=== PATIENT | male | born 1965 | race Caucasian/White ===

== ENCOUNTER → 2020-10-22 07:32 | Outpatient (CLI) | payer MEDICAID ==
[2016-05-30 23:10] VITALS: BMI 33.0
[~2020-10-22 07:32] MED LIST: HCTZ25 MG PO; IBUPROFEN600 MG PO; PRINIVIL20 MG PO; SORINE80 MG PO; TOPROL XL25 MG PO
--- NOTE | 2020-10-24 14:15 | EC ---
PATIENT:MELINDA HIRSCH DATE OF SERVICE: 10/22/20 SEX: M MEDICAL RECORD: [id number] DATE OF : 67 LOCATION:[facility] AGE OF PATIENT: 54 ADMISSION DATE: 10/22/20 REFERRING PHYSICIAN: INTERPRETING PHYSICIAN: LYN VÁZQUEZ MD ECHOCARDIOGRAM REPORT ECHO CHARGES 4 ECHO COMPLETE Date: 10/22/20 CLINICAL DIAGNOSIS: HEART MURMUR ECHOCARDIOGRAPHIC MEASUREMENTS (adult normal given) AC root (d.<3.7cm) 3.5 cm LV Septum d (<1.2 cm> 1.3 cm Valve Excursion 2.0 cm LV Septum (systole) 1.4 cm Left Atria (s.<4.0cm> 3.7 cm LVPW d(<1.2cm) 1.2 cm RV (d.<2.3cm) 4.6 cm LVPW (sytole) 1.9 cm LV diastole(<5.6CM) 5.6 cm MV E-F(>70mm/sec) cm LV systole 3.5 cm LVOT Diameter 2.1 cm MV exc.(>10mm) 1.6 cm Est.ejection fraction (50-75%) % DOPPLER: LVIT cm/sec A 98.0 cm/sec E 81.0 cm/sec LA cm/sec RVSP 35 mmHg LVOT 116 cm/sec AOP1/2T m/s Asc. Ao 145 cm/sec RVOT 63 cm/sec RA cm/sec PA 123 cm/sec AV Gradient Peak 8.39 mmHg AV Mean 4.08 mmHg AV Area 2.8 cm MV Gradient Peak 4.31 mmHg MV Mean 1.78 mmHg MV Area cm COMMENTS: Die Caster: 2 NOEL YE Ship Erector: 3 Dr. Salazar TAPE# PACS Pericardial Effusion N DATE OF SERVICE: Adequate 2D, color-flow imaging, spectral Doppler, and M-Mode Borderline LVH. LV internal dimension is normal. Wall motion was normal. EF is greater than or equal to 55%. Aortic valve sclerosed without evidence of stenosis by Doppler interrogation. Left atrium is normal at 3.9 cm. Mitral valve shows no prolapse. Trace MR. Right side is grossly normal. Trace TR. TRANSINT:[id number] Voice Confirmation ID: [id number] DOCUMENT ID: [id number] ECHOCARDIOGRAM REPORT [id number] MELINDA HIRSCH LYN VÁZQUEZ MD at 1415 CC: [id number] DICTATION DATE: 10/23/20 1045 CLINICAL QUALITY ASSURANCE ASSOCIATE: 10/23/20 1701 DEP CLI 10/22/20 [id number] [place] [address]
== END | disposition home or self-care (01) ==
LOC: D.HCCARDIO 07:32 → D.HCCECHO 09:00
PROVIDERS: ATTEND Internal Medicine Cardiovascular Disease
DX: R01.1 Cardiac murmur, unspecified (principal); I20.9 Angina pectoris, unspecified

== ENCOUNTER 2020-10-30 06:34 | Day surgery (SDC) | payer MEDICAID ==
[~2020-10-30] VITALS: Ht 177.8 cm; Wt 105.7 kg
--- NOTE | ~2020-10-30 | OP ---
PATIENT NAME: MELINDA HIRSCH MEDICAL RECORD: [id number] :67 LOCATION:[facility] ADMISSION DATE: SURGEON: LYN VÁZQUEZ MD DATE OF OPERATION: 10/30/2020 PROCEDURE: Left heart catheterization, selective coronary angiography, plus IFR wire to circ, plus intervention of the LAD, right femoral artery approach. CATHETERS: 5-Lithuanian sheath, 5/4 left and right Richie, 5/4 pig. The procedure was well tolerated. The patient returned to the chung. Sheath removed. ExoSeal device. FINDINGS: Left ventriculography in 30-degree ESTRADA view: Normal wall motion, normal systolic function. CORONARY ANATOMY: Left main: Left main is free of disease. LAD: Has proximal stenosis of 90%, diffuse stenosis distally of 80% to 90%. Circumflex: The circumflex has a questionable stenosis proximally; however, this is not flow restrictive via IFR wire. Right is rudimentary with diffuse disease. LAD appears culprit at this point. PLAN: Intervention momentarily. DESCRIPTION OF PROCEDURE: A 5-Lithuanian sheath was exchanged for a 6-Lithuanian sheath. A JL4 guiding catheter provided good guide catheter support followed by 300 cm indwelling IFR wire. Pre-deployment balloon was 3.0 x 15 mm Bullitt. Stents deployed where a 2.5 x 22, 3.0 x 12, and finally 3.0 x 15 all up to 14 atmospheres for 45 seconds. Final angiography showed excellent resolution, diffuse 80% stenosis distally and a more proximal discrete stenosis. No significant residual. KADEN flow was 3 throughout the procedure. Heparin and Integrilin were used during the case. Sheath closed with ExoSeal device. Given the young age, etc., risk factor modification will be at a premium. Further recommendations based on clinical course. TRANSINT:[id number] Voice Confirmation ID: [id number] DOCUMENT ID: [id number] LYN VÁZQUEZ MD CC: [id number] DICTATION DATE: 10/30/2038 ASSET CARD CLERK: 10/30/20 1317 [facility] 10/30/20 [facility] [address] [place] [address]
--- NOTE | ~2020-10-30 | HEMODYNAMI ---
PATIENT:MELINDA HIRSCH MEDICAL RECORD: [id number] : 67 LOCATION:[facility] ADMISSION DATE: 10/30/20 Generatedon:19:41 Patient name: MELINDA HIRSCH Patient #: [id number] SSN: D OB: 1965 Date of study: 10/30/2020 Page: Of Hemodynamic Procedure Report Patient Data Patient Demographics Procedure consent was obtained First Name: MELINDA Gender: Male Last Name: TORREY : 1965 Patient #: [id number] Age: 54 year(s) Race: Unknown Additional ID: [id number] Contact details [address]: [address] [place] [address] State: [place] City: [place] Zip code: [address] Past Medical History Allergies: No known allergies Admission Admission Data Admission Date: 10/30/2020 Admission Time: 6:34 Admit Source: Other Procedure Procedure Types Cath Procedure Diagnostic Procedure LHC LHC w/Coronaries FFR/IVUS FFR Initial Sedation Charges Moderate Sedation 40-54 minutes PCI Procedure Hemochron ACT Test Procedure Description Procedure Date Procedure Date: 10/30/2020 Procedure Start Time: 8:53 Procedure End Time: 9:39 Procedure Staff Name Function Jose Antonio Maxwell MD Performing Physician Raeann Perry RT Monitor Latrell Tavarez RN Nurse Louisa Connelly RT Scrub Procedure Data Cath Procedure Fluoroscopy Diagnostic fluoroscopy Total fluoroscopy Time: time: 12.2 min 12.2 min Diagnostic fluoroscopy Total fluoroscopy dose: dose: 2234 mGy 2234 mGy Contrast Material Contrast Material Type Amount (ml) Isovue 300 179 Entry Location Entry Primary Successful Side Size Upsize Upsize Entry Closure [place] ccessful Closure Location (Fr) 1 (Fr) 2 (Fr) Remarks Device Remarks Radial Right 6 Fr Mechanical artery Short Compression Femoral Right 5 Fr 6 Fr Exoseal artery Short Estimated blood loss: 10 ml Diagnostic catheters Device Type Used For End Catheter Placement DIAGNOSTIC [place] 110cm 5 Procedure Fr catheter (081471) MULTIPACK JL 4.0 5Fr Procedure catheter MULTIPACK 3DRC 5Fr Procedure catheter MULTIPACK Pigtail 5 Fr Ventriculography catheter Procedure Complications No complications Procedure Medications Medication Administration Route Dosage 0.9% NaCl I.V. 100 ml/hr Oxygen etCO2 Nasal cannula 2 l/min Heparin Flush Bag added to field 2 bags (1000units/500ml NS) Lidocaine 2% added to field 20 Radial Cocktail added to field 1 syringe (Verapamil 2mg/Nitro 400mcg/Heparin 1500units) Versed I.V. 2 mg Fentanyl I.V. 100 mcg Radial Cocktail I.A. 1 syringe (Verapamil 2mg/Nitro 400mcg/Heparin 1500units) Heparin Bolus I.V. 5000 units Integrilin (Bolus I.V. 9.5 ml 2mg/ml) Integrilin (Bolus wasted 0.5 ml 2mg/ml) Nitroglycerin IC/IA I.C. 150 mcg Plavix P.O. 600 mg Heparin Bolus I.V. 2000 units Hemodynamics Rest Heart Rate: 65 (bpm) Pressure Samples Time Site Value (mmHg) Purpose Heart Use Rate(bpm) 9:05 LV 133/32,34 Snapshot 61 Gradients Valve Time Site Site Mean SEP/DFP Peak To Heart Use 1 2 (mmHg) (sec/min) Peak Rate (mmHg) (bpm) Aortic 9:06 LV AO 62 Snapshots Pre Cath Intra NCS Post Cath Vital Signs Time Heart Resp SPO2 etCO2 NIBP Rhythm Pain Sedation Rate (ipm) (%) (mmHg) (mmHg) Status Level (bpm) 8:48:17 61 16 100 37.7 142/87(98) NSR 0 (11) 10(A) , No pain 8:52:33 61 13 100 30.8 122/70(88) NSR 0 (11) 10(A) , No pain 8:57:24 65 18 96 33.1 108/57(76) NSR 0 (11) 10(A) , No pain 9:01:32 60 11 98 39.1 107/56(91) NSR 0 (11) 10(A) , No pain 9:05:40 69 12 97 41.3 114/57(79) NSR 0 (11) 10(A) , No pain 9:09:50 60 10 99 36.8 114/62(78) NSR 0 (11) 10(A) , No pain 9:14:02 60 12 100 30.8 99/57(76) NSR 0 (11) 10(A) , No pain 9:18:05 62 13 100 40.6 113/63(81) NSR 0 (11) 10(A) , No pain 9:22:13 60 13 100 39.9 115/67(85) NSR 0 (11) 10(A) , No pain 9:26:23 61 13 100 39.9 119/62(87) NSR 0 (11) 10(A) , No pain 9:30:33 66 13 100 39.2 101/63(86) NSR 0 (11) 10(A) , No pain 9:34:33 66 15 100 39.1 106/72(99) NSR 0 (11) 10(A) , No pain 9:38:38 58 12 100 37.6 111/67(91) NSR 0 (11) 10(A) , No pain Medications Time Medication Route Dose Verified Delivered Reason Note s Effectiveness by by 8:47:34 0.9% NaCl I.V. 100 Latrell Latrell Per physician ml/hr Daysi Tavarez RN RN 8:47:43 Oxygen etCO2 2 l/min Latrell Latrell for low 02 sats Nasal Lorigan Lorpaulette cannula RN RN 8:47:54 Heparin Flush added 2 bags Latrell Latrell used for Bag to Lorigan Lorpaulette procedure (1000units/500ml [facility] RN RN NS) 8:48:04 Lidocaine 2% added 20ml Latrell Latrell for local to vial Lorigan Lorigan anesthetic RN RN 8:48:19 Radial Cocktail added 1 Latrell Latrell used for (Verapamil to syringe Lorigan Lorigan procedure 2mg/Nitro [facility] RN RN 400mcg/Heparin 1500units) 8:52:58 Versed I.V. 2 mg Latrell Latrell for sedation Daysi Tavarez RN RN 8:53:06 Fentanyl I.V. 100 mcg Latrell Latrell for sedation Daysi Tavarez RN RN 8:54:37 Radial Cocktail I.A. 1 Latrell Jose Antonio for (Verapamil syringe Lorigan Alissa vasodilation 2mg/Nitro RN MD 400mcg/Heparin 1500units) 9:11:24 Heparin Bolus I.V. 5000 Latrell Latrell for units Lorigan Lorpaulette anticoagulation RN RN 9:11:39 Integrilin I.V. 9.5 ml Latrell Latrell for (Bolus 2mg/ml) Daysi Tavarez antiplatelet RN RN therapy 9:11:53 Integrilin wasted 0.5 ml Latrell Latrell to sharp's (Bolus 2mg/ml) Daysi Tavarez RN RN 9:29:19 Nitroglycerin I.C. 150 mcg Latrell Jose Antonio for IC/IA Daysi Stephens RN, MD 9:37:26 Plavix P.O. 600 mg Latrell Latrell for Daysi Tavarez antiplatelet RN RN therapy 9:41:06 Heparin Bolus I.V. 2,000 Latrell Latrell for units Daysi Tavarez anticoagulation RN executive housekeeper Log Time Note 8:25:57 Informed consent obtained and on chart 8:29:27 Admit Source: Other 8:29:32 Procedure Status Elective Heart Cath (OP). 8:29:42 Louisa Connelly RT(R) sent for patient. Start room use. 8:29:44 Time tracking: Regular hours (M-F 7:00 - 5:00) 8:29:51 Plan of Care:Hemodynamics will remain stable., Cardiac rhythm will remain stable., Comfort level will be maintained., Respiratory function will remain adequate., Patient/ family verbilizes understanding of procedure., Procedure tolerated without complication., Recovers from procedure without complications.. 8:47:11 Patient received from Pre/Post Procedure Room to CCL 2 Alert and oriented. Tansferred to table in Supine position. 8:47:12 Warm blankets applied, and davon hugger turned on for patient comfort. 8:47:13 Correct patient and procedure confirmed by team. 8:47:13 ECG and BP/O2 sat monitors applied to patient. 8:47:15 Vital chart was started 8:47:16 Baseline sample Acquired. 8:47:21 Rhythm: sinus rhythm 8:47:23 Full Disclosure recording started 8:47:34 0.9% NaCl 100 ml/hr I.V. was administered by Latrell Tavarez RN; Per physician; Verbal order read back and verified. 8:47:40 H&P Date Dictated: 10/14/2020 Within 30 days and on chart., H&P Addendum completed by physician on day of procedure. (MUST COMPLETE FOR ALL OUTPATIENTS). 8:47:41 Pre-procedure instructions explained to patient. 8:47:43 Oxygen 2 l/min etCO2 Nasal cannula was administered by Latrell Tavarez RN; for low 02 sats; Verbal order read back and verified. 8:47:44 Family in patients room. 8:47:46 Patient NPO since Midnight. 8:47:54 Heparin Flush Bag (1000units/500ml NS) 2 bags added to field was administered by Latrell Tavarez RN; used for procedure; Verbal order read back and verified. 8:47:57 Patient allergic to No known allergies 8:48:00 Is the patient allergic to Iodine/contrast media? No. 8:48:04 Lidocaine 2% 20ml vial added to field was administered by Latrell Tavarez RN; for local anesthetic; Verbal order read back and verified. 8:48:18 Was the patient premedicated? Yes 8:48:19 Radial Cocktail (Verapamil 2mg/Nitro 400mcg/Heparin 1500units) 1 syringe added to field was administered by Latrell Tavarez RN; used for procedure; Verbal order read back and verified. 8:48:23 Is patient on blood thinner?No 8:48:25 Patient diabetic? No. 8:48:55 Previous problem with sedation/anesthesia? No ? 8:48:57 Snore? No 8:49:04 Patient pain scale 0/10 ?. 8:49:17 IV patent on arrival in left forearm with 0.9% NaCl at [facility]. 8:51:55 Stress Test: yes; abnormal hemodynamic 8:52:01 Right Radial & Right Groin area was prepped with chlora-prep and draped in sterile fashion 8:52:02 Alarms reviewed by R. N. 8:52:02 Sharps counted by scrub and verified by R.N. 8:52:06 Physician arrived 8:52:06 --------ALL STOP TIME OUT------ 8:52:07 Final Timeout: patient, procedure, and site verified with staff and physician. All members of the team are in agreement. 8:52:09 Right Radial & Right Groin site verified by team. 8:52:13 Fire Safety Assessment: A--An alcohol-based skin anteseptic being used preoperatively., C--Open oxygen or nitrous oxide is being used., D--An ESU, laser, or fiber-optic light is being used. 8:52:18 Physical assessment completed. ASA score P 3 - A patient with severe systemic disease as per Jose Antonio Maxwell MD. 8:52:21 1) 90+ Normal kidney functon but urine findings or structural abnormalities or genetic trait point to kidney disease. 8:52:24 Maximum allowable contrast dose (3.7 X eGFR X 0.75)250 ml. 8:52:28 Sedation plan: IV Moderate Sedation Medication:Versed, Fentanyl 8:52:58 Versed 2 mg I.V. was administered by Latrell Tavarez RN; for sedation; Verbal order read back and verified. 8:52:58 Use device set Radial Dx or PCI 8:53:01 Procedure started. 8:53:06 Fentanyl 100 mcg I.V. was administered by Latrell Tavarez RN; for sedation; Verbal order read back and verified. 8:53:16 Local anesthetic to right radial artery with Lidocaine 2% by Jose Antonio Maxwell MD.INITIAL ACCESS ONLY 8:53:26 A 6 Fr Short sheath was inserted into the Right Radial artery 8:53:28 ACIST Syringe (09256) opened to sterile field. 8:53:29 Medline Cath Pack ([id number]) opened to sterile field. 8:53:29 Bag Decanter (2002) opened to sterile field. 8:53:30 ACIST Hand Control (81291) opened to sterile field. 8:53:30 ACIST Manifold (34394) opened to sterile field. 8:53:34 MBrace Wrist Support ([id number]) opened to sterile field. 8:53:37 EMERALD Guide Wire (939-828) opened to sterile field. 8:53:38 SHEATH 6FR RAIN (4146929) opened to sterile field. 8:54:37 Radial Cocktail (Verapamil 2mg/Nitro 400mcg/Heparin 1500units) 1 syringe I.A. was administered by Jose Antonio Maxwell MD; for vasodilation; Verbal order read back and verified. 8:55:16 A DIAGNOSTIC [place] 110cm 5 Fr catheter (562057) was advanced over the wire and used for Procedure. 8:57:32 GLIDE WIRE ANGLE 260cm (ZD0422) opened to sterile field. 8:58:08 Jwire exchanged for Glidewire 9:00:21 unable to access coronarys through radial artery 9:00:29 Catheter removed. 9:00:54 SHEATH 5FR [place] (GYD224) opened to sterile field. 9:01:36 Local anesthetic to right femoral artery with Lidocaine 2% by Jose Antonio Maxwell MD.ADDITIONAL ACCESS 9:01:47 A 5 Fr sheath was inserted into the Right Femoral artery 9:01:54 DIAGNOSTIC Multipack 5Fr catheter set (BG7546) opened to sterile field. 9:02:09 A MULTIPACK JL 4.0 5Fr catheter was advanced over the wire and used for Procedure. 9:02:32 LCA angiography performed. 9:03:36 Catheter removed. 9:03:43 A MULTIPACK 3DRC 5Fr catheter was advanced over the wire and used for Procedure. 9:04:24 RCA angiography performed. 9:05:18 Catheter removed. 9:05:43 A MULTIPACK Pigtail 5 Fr catheter was advanced over the wire and used for Ventriculography. 9:06:09 LV gram done using ESTRADA 9:06:18 EF : 55 % 9:06:34 SHEATH 6FR [place] (VBE548) opened to sterile field. 9:06:50 Sheath upsized to a 6 Fr Short. 9:07:29 6 Fr JL4 guide catheter was inserted over the wire 9:07:53 GUIDE 6FR JL 4.0 catheter (LO4LY93) opened to sterile field. 9:08:12 Richey OmniWire (45462) opened to sterile field. 9:08:48 Zero performed for pressure channel P1 9:08:52 Zero performed for pressure channel P1 9:09:27 Pressure wire advanced. 9:11:24 Heparin Bolus 5000 units I.V. was administered by Latrell Tavarez RN; for anticoagulation; Verbal order read back and verified. 9:11:39 Integrilin (Bolus 2mg/ml) 9.5 ml I.V. was administered by Latrell Tavarez RN; for antiplatelet therapy; Verbal order read back and verified. 9:11:53 Integrilin (Bolus 2mg/ml) 0.5 ml wasted was administered by Latrell Tavarez RN; to sharp's; Verbal order read back and verified. 9:11:53 mCirc lesion measured at .94 with IFR 9:12:34 Wire redirected to LAD. 9:17:19 INFLATOR Merit BasixCompak (XB2066) opened to sterile field. 9:17:23 ZEPHYR REGULAR TR BAND (895661) opened to sterile field. 9:17:24 Tegaderm 4 x 4 (1626W) opened to sterile field. 9:17:58 Place stent Inflation Number: 1 A ARCELIA RX 3.0 x 12 stent ([id number]) was prepped and advanced across the Mid LAD 80. The stent was deployed at 14 PAMELLA for 0:18 (min:sec) . 9:18:55 Inflation number: 1 The stent balloon was then re-inflated across the Dist LAD 80 to 8 PAMELLA for 0:15 (min:sec) . 9:21:01 Stent catheter was removed intact over wire. 9:21:53 Place stent Inflation Number: 2 A ARCELIA RX 2.5 x 22 stent ([id number]) was prepped and advanced across the Dist LAD 80. The stent was deployed at 12 PAMELLA for 0:19 (min:sec) . 9:22:18 Inflation number: 3 The stent balloon was then re-inflated across the Dist LAD to 10 PAMELLA for 0:12 (min:sec) . 9:23:55 Inflation number: 4 The stent balloon was then re-inflated across the Dist LAD to 6 PAMELLA for 0:27 (min:sec) . 9:24:20 Stent catheter was removed intact over wire. 9:26:29 Place stent Inflation Number: 1 A ARCELIA RX 3.0 x 15 stent ([id number]) was prepped and advanced across the Prox LAD 80. The stent was deployed at 12 PAMELLA for 0:32 (min:sec) . 9:27:07 Inflation number: 2 The stent balloon was then re-inflated across the Prox LAD to 6 PAMELLA for 0:15 (min:sec) . 9:27:34 Inflation number: 3 The stent balloon was then re-inflated across the Prox LAD to 8 PAMELLA for 0:10 (min:sec) . 9:29:19 Nitroglycerin IC/IA 150 mcg I.C. was administered by Jose Antonio Maxwell MD; for vasodilation; Verbal order read back and verified. 9:31:10 Stent catheter was removed intact over wire. 9:31:16 Wire removed. 9:31:17 Guide catheter removed. 9:33:22 EXOSEAL 6Fr (EX600) opened to sterile field. 9:33:40 Sheath removed intact; hemostasis achieved with Exoseal to the Right Femoral artery. 9:33:53 Sheath removed intact; hemostasis achieved with Mechanical Compression to the Right Radial artery. 9:33:57 Procedure ended.(Physican Out) 9:34:35 Fluoroscopy time 12.20 minutes. 9:34:42 Fluoroscopy dose: 2234 mGy 9:34:42 Flurop Dose total: 2234 9:34:47 Dose Area Product [id number] mGy/cm. 9:35:01 Contrast amount:Isovue 300 179ml. 9:35:03 Maximum allowable dose exceeded? No. 9:35:04 Sharps counted by scrub and verified by R.N. 9:35:08 [place] band inflated with 10cc of air. 9:35:09 Insertion/operative site no bleeding no hematoma. 9:35:13 Post-op/insertion site Right Femoral artery dressed using a 4 x 4 and Tegaderm. 9:35:16 Post Procedure Pulses reassessed and unchanged 9:35:20 Post-procedure physical assessment completed. ASA score P 3 - A patient with severe systemic disease as per Jose Antonio Maxwell MD. 9:35:23 Post procedure rhythm: unchanged. 9:35:26 Estimated blood loss: 10 ml 9:35:28 Post procedure instruction explained to patient.Patient verbalizes understanding. 9:36:08 Procedure type changed to Cath procedure, Diagnostic procedure, [facility], [facility] w/Coronaries, FFR/IVUS, FFR Initial, Sedation Charges, Moderate Sedation 40-54 minutes, PCI procedure, Hemochron ACT Test 9:36:11 Procedure and supply charges have been captured, reviewed, submitted and are correct. 9:37:26 Plavix 600 mg P.O. was administered by Latrell Tavarez RN; for antiplatelet therapy; Verbal order read back and verified. 9:37:44 ACT drawn and resulted at 135 seconds. (normal therapeutic range 180-240 seconds). 9:39:40 Procedure Complication : No complications 9:39:42 Vital chart was stopped 9:39:46 [facility] Findings: MVD- PCI performed (see procedure note) 9:39:48 Operative report dictated upon procedure completion. 9:39:48 See physician's report for complete and final results. 9:39:51 Report given to Pre/Post Procedure Room. 9:39:54 Patient transfered to Pre/Post Procedure Room with Stretcher. 9:39:57 Procedure ended. 9:39:57 Full Disclosure recording stopped 9:40:05 End room use (Document Last) 9:40:34 End room use (Document Last) 9:41:06 Heparin Bolus 2,000 units I.V. was administered by Latrell Tavarez RN; for anticoagulation; Verbal order read back and verified. 9:41:08 End room use (Document Last) Intervention Summary Intervention Notes Time ActionType Lesion and Equipment Used Action# Pressure Duration Attributes 9:17:58 Place stent Mid LAD ARCELIA RX 3.0 x 1 14 00:18 12 stent ([id number]) 9:18:55 Reinflate Dist LAD ARCELIA RX 3.0 x 1 8 00:15 stent 12 stent balloon ([id number]) 9:21:53 Place stent Dist LAD ARCELIA RX 2.5 x 2 12 00:19 22 stent ([id number]) 9:22:18 Reinflate Dist LAD ARCELIA RX 2.5 x 3 10 00:12 stent 22 stent balloon ([id number]) 9:23:55 Reinflate Dist LAD ARCELIA RX 2.5 x 4 6 00:27 stent 22 stent balloon ([id number]) 9:26:29 Place stent Prox LAD ARCELIA RX 3.0 x 1 12 00:32 15 stent ([id number]) 9:27:07 Reinflate Prox LAD ARCELIA RX 3.0 x 2 6 00:16 stent 15 stent balloon ([id number]) 9:27:34 Reinflate Prox LAD ARCELIA RX 3.0 x 3 8 00:10 stent 15 stent balloon ([id number]) Device Usage Item Name Manufacture Quantity Catalog Hospital Part Current [facility] Lot# / Number Charge Number Stock Stock Serial# Code ACIST Syringe Acist 1 61929 315176 803955 051689 20 (15978) Medical Systems Inc Medline Cath Medline 1 [id number] 736755 54443 518458 5 Pack ([id number]) Bag Decanter Microtek 1 502893 06287 735535 5 () Medical Inc. ACIST Hand Acist 1 41063 743162 966459 966912 5 Control Medical (18312) Systems Inc ACIST Manifold Acist 1 76169 888871 486662 870775 5 (63669) Medical Systems Inc MBrace Wrist Advanced 1 140-0250-00 282501 00077 330465 5 Support Vascular ([id number]) Dynamics EMERALD Guide Cardinal 1 502-455 799589 132713 695901 5 Wire (502-455) Health SHEATH 6FR Cardinal 1 4510654 686856 2837528 708059 5 RAIN (2064305) Health DIAGNOSTIC Terumo 1 40-5013 090639 688872 532939 5 [place] 110cm 5 Fr catheter (705360) GLIDE WIRE Terumo 1 GI0663 907315 389746 083638 5 ANGLE 260cm (BE0017) SHEATH 5FR Terumo 1 OFK440 153567 642127 317210 5 [place] (YFV434) DIAGNOSTIC Cardinal 1 DD2631 950474 56383 520795 30 Multipack 5Fr Health catheter set (OH6062) MULTIPACK JL Cardinal 1 432928 5 4.0 5Fr Health catheter MULTIPACK 3DRC Cardinal 1 842075 5 5Fr catheter Health MULTIPACK Cardinal 1 073492 5 Pigtail 5 Fr Health catheter SHEATH 6FR Terumo 1 SQN746 651283 770529 803805 40 [place] (UMD032) GUIDE 6FR JL Medtronic 1 [id number] 727315 96584 684010 1 4.0 catheter (NL5BA22) Richey Richey 1 9570411 707320 16960 9975 5 OmniWire (88820) INFLATOR Merit Merit 1 CQ4485 106816 026089 606504 15 BasixComtxk Medical (ER0289) ZEPHYR REGULAR Cardinal 1 773629 639791 6299257 568516 5 Travee (515316) Tegaderm 4 x 4 3M 1 1626W 425753 532152 844281 5 (1626W) ARCELIA RX 3.0 x Medtronic 1 [id number] 176677 9777396 174668 5 [id number] 12 stent ([id number]) ARCELIA RX 2.5 x Medtronic 1 [id number] 868450 3404110 870336 5 [id number] 22 stent ([id number]) ARCELIA RX 3.0 x Medtronic 1 [id number] 120911 9081671 392484 5 [id number] 15 stent ([id number]) EXOSEAL 6Fr Cardinal 1 EX600 541537 253020 913263 10 (EX600) Health Signature Audit [place] Stage Time Signature Unsigned Intra-Procedure 10/30/2020 Raeann Perry 9:40:34 AM RT(R) Intra-Procedure 10/30/2020 Latrell 9:41:08 AM Daysi RN Intra-Procedure 10/30/2020 Jose Antonio Khan 9:41:45 AM Delio VARGAS Signatures Performing Physician : Signature : Jose Antonio Maxwell MD Date : Time : Monitor : Raeann Perry Signature : RT Date : Time : Nurse : Latrell Tavarez Signature : RN Date : Time : [address] [place] [address]
[2020-10-30] MEDS ORDERED: BAYER CHEWABLE81 MG PO (07:06)
[2020-10-30] MEDS ORDERED: LIPITOR20 MG PO (07:07)
[2020-10-30 07:38] VITALS: BP 136/80; Ht 177.8 cm; Wt 105.7 kg
[2020-10-30 07:38] LABS: BASOPHILS 0.6 % (0-2); EOSINOPHILS 2.5 % (0-7); HEMATOCRIT 41.5 % (42.0-54.0); HEMOGLOBIN 12.6 g/dL (13.5-17.5); IMMATURE GRANULOCYTES 0.1 % (0-5); LYMPHOCYTE ABS# 2.33 10x3/uL (1.32-3.57); LYMPHOCYTES 28.7 % (15-50); MCH 23.9 pg (26.0-34.0); MCHC 30.4 g/dL (31.0-37.0); MCV 78.7 fL (80.0-100.0); MONOCYTES 8.9 % (2-11); NEUTROPHIL ABS# 4.81 10x3/uL (1.78-5.38); NEUTROPHILS 59.2 % (40-80); RBC 5.27 10x6/uL (4.20-6.10); RDW 16.3 % (11.5-14.5); WBC 8.1 10x3/uL (4.8-10.8)
[2020-10-30 07:48] LABS: PLATELET COUNT 422 10x3/uL (130-400)
[2020-10-30 07:57] LABS: ALT (SGPT) 25 U/L (10-68); CALC OSMOLALITY 269 mosm/kg (275-300); CALCIUM 8.6 mg/dL (8.5-10.1); CARBON DIOXIDE 27.1 mmol/L (21.0-32.0); CHLORIDE - SERUM 100 mmol/L (98-107); CHOL - HDL RATIO 4.6 ratio (2.3-4.9); CHOLESTEROL, TOTAL 119 mg/dL (0-200); CREATININE - SERUM 0.8 mg/dL (0.6-1.3); GLUCOSE 102 mg/dL (74-106); HDL CHOLESTEROL 26 mg/dL (32-96); LDL CHOLESTEROL 80 mg/dL (0-100); LDL-HDL RATIO 3.1 ratio (1.5-3.5); POTASSIUM - SERUM 4.3 mmol/L (3.5-5.1); SODIUM 135 mmol/L (136-145); TRIGLYCERIDE 65 mg/dL (30-200); UREA NITROGEN 12 mg/dL (7-18); eGFR NON AFRICAN AMERICAN > 90 mL/min (90-120)
--- NOTE | 2020-10-30 09:51 | NUR ---
PT REC'D TO FISCAL SPECIALIST RECOVERY ROOM 8 VIA [employer]. MONITORS ESTAB. MOTHER AT BS. 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 ALARMS ON AND C/L IN REACH.
[2020-10-30] MEDS ORDERED: PLAVIX75 MG PO (09:55)
--- NOTE | 2020-10-30 10:05 | NUR ---
R GROIN EXOSEAL SITE AND R Z BAND SITE BOTH C/D/I, NO S/S BLEEDING OR HEMATOMA. R LEG/FOOT AND R ARM/HAND - BOTH WARM WITH PALP PULSES and BRISK CAP REFILL. VSS. PT DENIES PAIN OR NEEDS. ALARMS ON AND C/L IN REACH.
--- NOTE | 2020-10-30 10:35 | NUR ---
VSS. R GROIN SITE AND R RADIAL Z BAND SITE C/D/I, NO S/S BLEEDING OR SWELLING, PULSES PALP. PT TAKING SIPS OF SPRITE, DENIES PAIN OR HEARTBURN AT THIS TIME. ALARMS ON AND C/L IN REACH.
--- NOTE | 2020-10-30 11:05 | NUR ---
PT RESTING QUIETLY, R GROIN STIE AND R Z BAND SITE - BOTH C/D/I, NO S/S BLEEDING OR HEMATOMA. PULSES PALP. BRISK CAP REFILL. ALARMS ON AND C/L IN REACH.
--- NOTE | 2020-10-30 11:35 | NUR ---
PT VOIDED 550 ML CLEAR YELLOW URINE IN URINAL. R GROIN EXOSEAL AND R RADIAL Z BAND SITE BOTH C/D/I, NO S/S BLEEDING OR HEMATOMA. PULSES PALP WITH BRISK CAP REFILL. VSS. PT DENIES PAIN OR NEEDS. ALARMS ON AND C/L IN REACH.
--- NOTE | 2020-10-30 12:00 | NUR ---
VSS. PT VISITING WITH MOTHER. BOTH R GROIN AND R WRIST SITES C/D/I, NO S/S BLEEDING OR HEMATOMA, PULSES PALP. PT DENIES PAIN OR NEEDS. ALARMS ON AND C/L IN REACH.
--- NOTE | 2020-10-30 12:30 | NUR ---
R GROIN SITE SOFT, NO S/S BLEEDING OR HEMATOMA - HOB ELEVATED, SANDWICH TRAY AND SPRITE PROVIDED. VSS. R WRIST SITE C/D/I, NO S/S BLEEDING OR HEMATOMA, PULSES PALP. ALARMS ON AND C/L IN REACH.
--- NOTE | 2020-10-30 13:00 | NUR ---
VSS. PT TOLERATED DIET. R GROIN SITE C/D/I, NO S/S BLEEDING OR HEMATOMA. 5 CC AIR REMOVED FROM Z BAND, NO S/S BLEEDING - PT INSTRUCTED ON S/S TO REPORT TO NURSE. ALARMS ON AND C/L IN REACH.
--- NOTE | 2020-10-30 13:15 | NUR ---
ALL AIR REMOVED FROM Z BAND, NO S/S BLEEDING. VSS. C/L IN REACH.
--- NOTE | 2020-10-30 13:40 | NUR ---
PIV D/C'D INTACT, DSG APPLIED. R ZBAND D/C'D - DSG APPLIED. PT ALLOWED UP TO GET DRESSED AND GO TO BR INDEPENDENTLY.
--- NOTE | 2020-10-30 13:46 | NUR ---
ALL DISCHARGE INSTRUCTIONS REVIEWED WITH PT, INCLUDING RESTRICTIONS, MEDS AND F/U APPT. ALSO GIVEN CARDIAC REHAB PAMPHLET - ORDER IS IN, LATASHA HAS BEEN NOTIFIED.. PT VERBALIZES UNDERSTANDING, NO QUESTIONS AT THIS TIME.
--- NOTE | 2020-10-30 13:50 | NUR ---
PT D/C'D VIA WC TO PRIVATE VEHICLE WITH ALL PAPERWORK AND BELONGINGS.
== END 2020-10-30 13:50 | disposition home or self-care (01) ==
LOC: D.CATH 06:34
PROVIDERS: ATTEND Internal Medicine Interventional Cardiology
DX: I20.9 Angina pectoris, unspecified (principal); R94.31 Abnormal electrocardiogram [ECG] [EKG]; R07.9 Chest pain, unspecified; I10 Essential (primary) hypertension; E78.5 Hyperlipidemia, unspecified; R01.1 Cardiac murmur, unspecified